=== PATIENT | male | born 1990 | race Two or more races ===

== ENCOUNTER 2024-07-14 05:35 | Emergency (ER) | payer MEDICAID, SELFPAY ==
[2024-07-14 05:39] VITALS: BMI 33.4
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
== END 2024-07-14 08:43 ==
LOC: SERX 07:25
PROVIDERS: Emergency Provider Emergency Medicine
DX: Z02.89 Encounter for other administrative examinations (principal); Z04.1 Encounter for examination and observation following transport accident
CPT/HCPCS: 99281